=== PATIENT | male | born 1980 | race Caucasian/White ===

== ENCOUNTER 2017-12-23 19:43 | Emergency (ER) | payer OTHER ==
[~2017-12-23] VITALS: Ht 182.9 cm; Wt 90.7 kg
[2017-12-23] MEDS ORDERED: METHYLPHENIDATE20 MG PO (20:02)
== END 2017-12-23 21:15 | disposition short-term general hospital (02) ==
LOC: ED 19:43
DX: S05.31XA Ocular laceration without prolapse or loss of intraocular tissue, right eye, initial encounter (principal); W22.8XXA Striking against or struck by other objects, initial encounter; Y93.89 Activity, other specified
CPT/HCPCS: 70486; 90471; 90715; 96372; 96374; 96375; 99285; J1170; J2405